=== PATIENT | male | born 1950 | race Two or more races ===

== ENCOUNTER 2020-08-31 09:14 | Day surgery (SDC) | payer MEDICARE, SELFPAY ==
[2020-08-24 14:05] VITALS: BMI 47.9
[2020-08-31 10:06] VITALS: BP 228/151; PULSE 97; RESP 16; TEMP 36.6; O2SAT 96
--- NOTE | 2020-08-31 10:34 | PC.NURSE ---
Dr. Chavis and Dr. cuellar at patient bedside. patient refused to go to the ED states he has been dealing with elevated bp, he will go home and take his medications and follow up with PCP.
== END 2020-08-31 23:59 ==
LOC: HO.SSS 09:14
PROVIDERS: PCP Nurse Practitioner Family; Visit Provider Internal Medicine Gastroenterology
DX: Z12.11 Encounter for screening for malignant neoplasm of colon (principal); Z53.9 Procedure and treatment not carried out, unspecified reason

== ENCOUNTER → 2020-09-15 08:44 | Outpatient (BNVA) | payer MEDICARE, SELFPAY | PROVIDERS: PCP Nurse Practitioner Family; Visit Provider Physician Assistant | DX: Z12.11 Encounter for screening for malignant neoplasm of colon (principal) | CPT/HCPCS: Q3014 ==

== ENCOUNTER 2021-03-02 10:02 | Outpatient (REF) | payer MEDICARE, SELFPAY ==
[2021-03-02 13:06] LABS: Vitamin B12 340 pg/mL (200-900)
[2021-03-02 13:11] LABS: Prostate Specific Antigen Scr 0.17 ng/mL (<0.05-4.0); TSH reflex Free T4 0.68 uIU/mL (0.32-4.0)
[2021-03-02 13:15] LABS: Alanine Aminotransferase 10 U/L (0-40); Albumin Level 3.9 g/dL (3.5-5.0); Alkaline Phosphatase 70 U/L (39-117); Anion Gap 13 (12-20); Aspartate Amino Transferase 11 U/L (5-37); Bilirubin Total 0.4 mg/dL (0.0-1.0); Blood Urea Nitrogen 25 mg/dL (9-16); Calcium 9.2 mg/dL (8.4-10.2); Carbon Dioxide 27 mmol/L (22-29); Chloride 107 mmol/L (96-108); Cholesterol 160 mg/dL; Estimated Glomerular Filt Rate 38; Glucose Fasting 85 mg/dL (60-99); HDL Cholesterol 40 mg/dL; LDL Cholesterol Calculated 107 mg/dl; Magnesium 2.1 mg/dL (1.6-2.6); Potassium 4.6 mmol/L (3.3-5.1); Sodium 142 mmol/L (135-145); Total Protein 6.6 g/dL (6.5-8.0); Triglycerides 67 mg/dL
[2021-03-06 12:46] LABS: Vitamin B6 3.9 ng/mL (2.1-21.7)
== END 2021-03-02 10:03 | disposition home or self-care (01) ==
LOC: HO.HMGCLDS 10:02
PROVIDERS: PCP Nurse Practitioner Family; Visit Provider Nurse Practitioner Family
DX: I10 Essential (primary) hypertension (principal); R25.2 Cramp and spasm; R79.89 Other specified abnormal findings of blood chemistry
CPT/HCPCS: 36415; 80053; 80061; 82607; 83735; 84153; 84207; 84443

== ENCOUNTER → 2021-03-29 14:54 | Outpatient (BNVA) | payer MEDICARE, SELFPAY | PROVIDERS: PCP Nurse Practitioner Family; Referring Provider Nurse Practitioner Family; Visit Provider Nurse Practitioner Family | DX: Z12.11 Encounter for screening for malignant neoplasm of colon (principal); K59.00 Constipation, unspecified; I10 Essential (primary) hypertension | CPT/HCPCS: 99212 ==

== ENCOUNTER → 2021-04-22 08:17 | Outpatient (REF) | payer MEDICARE, SELFPAY ==
--- NOTE | 2021-04-22 08:20 | CA_ITS ---
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 The calculated ejection fraction is 58% by biplane method. - There is mild calcification of the aortic valve. - There is mild dilatation of the ascending aorta measuring 4.30 cm. Findings Procedure Information Contrast agent, definity, is being given per protocol without apparent complications. Left Ventricle Normal left ventricular cavity size. There is moderately increased left ventricular wall thickness. The left ventricular systolic function is normal. The calculated ejection fraction is 58% by biplane method. There is no evidence of regional wall motion abnormalities. E/E prime ratio is between 8 and 15 consistent with indeterminate filling pressures. Evidence suggests grade I (mild) diastolic dysfunction. Right Ventricle Normal right ventricular cavity size and systolic function. Atria The left atrium is mildly dilated. The right atrium is normal in size. Aortic Valve There is a normal trileaflet aortic valve. There is mild calcification of the aortic valve. There is no aortic valve stenosis. There is no aortic valve regurgitation. Mitral Valve The mitral valve appears normal. There is trace mitral valve regurgitation. There is no mitral valve stenosis. Pulmonic Valve The pulmonic valve was not well visualized. Tricuspid Valve Normal tricuspid valve structure. There is trace tricuspid valve regurgitation. The pulmonary artery systolic pressure is normal. Great Vessels There is mild dilatation of the ascending aorta measuring 4.30 cm. Venous The inferior vena cava is normal in size and collapses greater than 50% with inspiration. Pericardium/Pleural There is no evidence of pericardial effusion. Prior Study Comparison No prior study available for comparison. Measurements 2D Linear Measurements IVSd: 1.32 0.6-0.9/0.6-1.0 cm LVIDd: 4.93 3.9-5.3/4.2-5.9 cm LVIDd Index: 2.33 2.4-3.2/2.2-3.1 cm/m2 LVIDs: 3.39 2.0-3.6 cm LVPWd: 1.30 0.7-1.1 cm Ao Root: 4.00 2.1-3.5 cm LA Diam: 3.20 2.7-3.8/3.0-4.0 cm LAIDs Index: 1.51 1.5-2.3 cm/m2 LV Mass: 322.97 67-162/88-224 g LV Mass Index: 152.34 43-95/49-115 g/m2 LVOT Diam: 2.20 3.0+(-)1.3 cm 2D Systolic Function EF 4C: 58.00 >55% EF 2C: 59.00 >55% EF BiP: 57.80 >55% Mitral Valve MV Pk E: 0.86 MV PK A: 1.11 MV Decel Time: 271.00 E/A: 0.80 E'Lateral: 5.87 E'Medial: 6.20 E/E' Med: 13.90 E/E' Lat: 14.70 PHT: 79.00 MVA PHT: 2.78 Decel Elmore: 3.19 Aortic Valve AoV Pk Jasper: 1.81 AoV Mn Jasper: 1.26 AoV VTI: 0.34 AoV Pk Grad: 13.00 Aov Mn Grad: 7.00 KIMMY Cont.VTI: 2.45 LVOT LVOT Pk Jasper: 1.01 LVOT Mn Jasper: 0.65 LVOT VTI: 0.22 LVOT Pk Grad: 4.00 LVOT Mn Grad: 2.00 LVOT Diam: 2.20 LVOT Area: 3.80 Diastolic Function MV Pk E: 0.86 MV Pk A: 1.11 E/A: 0.80 E'Medial: 6.20 E/E' Med: 13.90 E' Laterial: 5.87 E/E' Lat: 14.70 Tricuspid Valve RA Press: 3.00 Great Vessels Aorta Ao Root-2D: 4.00 2.0-3.7 cm Ao Asc: 4.30 2.1-3.4 cm Updated in Other Vendor System with Status of Final Thad Hoover MD electronically signed on 04/23/2021 1:27:26 PM with status of Final
== END ==
LOC: HO.CARD 08:17
PROVIDERS: Visit Provider Nurse Practitioner Family
DX: Z01.818 Encounter for other preprocedural examination (principal); I10 Essential (primary) hypertension; E66.01 Morbid (severe) obesity due to excess calories; R60.9 Edema, unspecified
CPT/HCPCS: 93306; Q9957

== ENCOUNTER → 2021-05-09 14:49 | Outpatient (BNVA) | payer MEDICARE, SELFPAY | PROVIDERS: PCP Nurse Practitioner Family; Referring Provider Nurse Practitioner Family; Visit Provider Internal Medicine Cardiovascular Disease | DX: I11.9 Hypertensive heart disease without heart failure (principal) | CPT/HCPCS: 99202 ==

== ENCOUNTER 2021-06-07 09:54 | Outpatient (REF) | payer MEDICARE, SELFPAY | END 2021-06-07 09:55 | disposition home or self-care (01) | LOC: HO.HMGCX 09:54 | PROVIDERS: PCP Nurse Practitioner Family; Visit Provider Internal Medicine Cardiovascular Disease | DX: Z13.89 Encounter for screening for other disorder (principal) ==

== ENCOUNTER 2021-06-08 09:53 | Outpatient (REF) | payer MEDICARE, OTHER, SELFPAY ==
--- NOTE | ~2021-06-08 | US_ITS ---
EXAMINATION: US RETROPERITONEAL LIMITED (RENAL WITH DOPPLER) CLINICAL INFORMATION: Essential hypertension. COMPARISON: None TECHNIQUE: Ultrasound of the kidneys was performed along with color flow Doppler imaging and velocity measurements in the proximal mid and distal renal arteries. In addition, resistive indices were calculated. Aortic velocities were measured and renal/aortic ratios were calculated. FINDINGS: Both kidneys demonstrate increased echogenicity. The right kidney is significantly smaller than the left. RIGHT KIDNEY: 8.0 x 5.0 x 3.9 cm (SAG x AP x TRV). The kidney is normal contour Renal cortical thickness is normal. No calculi or focal parenchymal lesions. No hydronephrosis. LEFT KIDNEY: 12.2 x 5.4 x 5.6 cm (SAG x AP x TRV). The kidney is normal in size and contour, . Renal cortical thickness is normal. Two cysts are noted one in the upper pole measuring 1.5 cm and another in the lower pole measuring 2.5 cm. No solid masses are seen. No calculi . No hydronephrosis. Velocity measurements in the proximal mid and distal renal arteries are normal. Highest velocity on the right is approximately 75 cm/s and the highest velocity on the left is also approximally at 95 cm/s. Aortic velocities were normal at 73 cm/s and, therefore, the renal aortic ratios are normal. Resistive indices were measured and were all within normal limits. Both renal veins appear to be patent. US/US renal BI IMPRESSION: The right kidney is significantly smaller than the left and both kidneys demonstrate increased echogenicity suggesting medical renal disease. However, there is no convincing evidence of renal vascular hypertension. Incidentally noted are two simple cysts left kidney.
--- NOTE | ~2021-06-08 | US_ITS ---
EXAMINATION: US RETROPERITONEAL LIMITED (RENAL WITH DOPPLER) CLINICAL INFORMATION: Essential hypertension. COMPARISON: None TECHNIQUE: Ultrasound of the kidneys was performed along with color flow Doppler imaging and velocity measurements in the proximal mid and distal renal arteries. In addition, resistive indices were calculated. Aortic velocities were measured and renal/aortic ratios were calculated. FINDINGS: Both kidneys demonstrate increased echogenicity. The right kidney is significantly smaller than the left. RIGHT KIDNEY: 8.0 x 5.0 x 3.9 cm (SAG x AP x TRV). The kidney is normal contour Renal cortical thickness is normal. No calculi or focal parenchymal lesions. No hydronephrosis. LEFT KIDNEY: 12.2 x 5.4 x 5.6 cm (SAG x AP x TRV). The kidney is normal in size and contour, . Renal cortical thickness is normal. Two cysts are noted one in the upper pole measuring 1.5 cm and another in the lower pole measuring 2.5 cm. No solid masses are seen. No calculi . No hydronephrosis. Velocity measurements in the proximal mid and distal renal arteries are normal. Highest velocity on the right is approximately 75 cm/s and the highest velocity on the left is also approximally at 95 cm/s. Aortic velocities were normal at 73 cm/s and, therefore, the renal aortic ratios are normal. Resistive indices were measured and were all within normal limits. Both renal veins appear to be patent. US/US renal doppler IMPRESSION: The right kidney is significantly smaller than the left and both kidneys demonstrate increased echogenicity suggesting medical renal disease. However, there is no convincing evidence of renal vascular hypertension. Incidentally noted are two simple cysts left kidney.
== END 2021-06-08 09:54 | disposition home or self-care (01) ==
LOC: HO.HMGCX 09:53
PROVIDERS: PCP Nurse Practitioner Family; Visit Provider Internal Medicine Cardiovascular Disease
DX: G47.33 Obstructive sleep apnea (adult) (pediatric) (principal); I10 Essential (primary) hypertension
CPT/HCPCS: 76775; 93975

== ENCOUNTER → 2021-10-31 19:43 | Outpatient (REF) | payer OTHER, SELFPAY | LOC: HO.SL 19:43 | PROVIDERS: Visit Provider Internal Medicine Cardiovascular Disease | DX: G47.33 Obstructive sleep apnea (adult) (pediatric) (principal); G47.61 Periodic limb movement disorder; R06.83 Snoring; R40.0 Somnolence | CPT/HCPCS: 95811 ==

== ENCOUNTER → 2021-11-14 14:06 | Outpatient (BNVA) | payer OTHER, SELFPAY | PROVIDERS: Visit Provider Nurse Practitioner Family | DX: G47.33 Obstructive sleep apnea (adult) (pediatric) (principal); I10 Essential (primary) hypertension; R25.1 Tremor, unspecified; H57.12 Ocular pain, left eye | CPT/HCPCS: 99202 ==

== ENCOUNTER 2022-07-27 14:00 | Outpatient (REF) | payer OTHER, SELFPAY ==
[2022-07-27 17:42] LABS: Anion Gap 21 (12-20); Blood Urea Nitrogen 66 mg/dL (9-16); Calcium 9.1 mg/dL (8.4-10.2); Carbon Dioxide 18 mmol/L (22-29); Chloride 107 mmol/L (96-108); Estimated Glomerular Filt Rate 26; Glucose Random 132 mg/dL (60-115); Potassium 4.8 mmol/L (3.3-5.1); Sodium 141 mmol/L (135-145); Uric Acid 10.3 mg/dL (3.4-7.0)
== END 2022-07-27 14:01 | disposition home or self-care (01) ==
LOC: HO.HMGCLDS 14:00
PROVIDERS: PCP Nurse Practitioner Family; Visit Provider Hospitalist
DX: N17.9 Acute kidney failure, unspecified (principal)
CPT/HCPCS: 36415; 80048; 84550

== ENCOUNTER → 2022-09-14 14:03 | Outpatient (BNVA) | payer OTHER, SELFPAY | PROVIDERS: PCP Nurse Practitioner Family; Referring Provider Nurse Practitioner Family; Visit Provider Nurse Practitioner Family | DX: I13.0 Hypertensive heart and chronic kidney disease with heart failure and stage 1 through stage 4 chronic kidney disease, or unspecified chronic kidney disease (principal); I50.9 Heart failure, unspecified; N18.9 Chronic kidney disease, unspecified | CPT/HCPCS: 99212 ==

== ENCOUNTER 2023-05-14 09:54 | Outpatient (AMB) | payer OTHER, SELFPAY ==
[2023-05-14 10:33] VITALS: BP 158/88; PULSE 66; O2SAT 97; BMI 48.2
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
== END 2023-05-14 12:56 | disposition home or self-care (01) ==
PROVIDERS: Visit Provider Nurse Practitioner Family
DX: I11.0 Hypertensive heart disease with heart failure (principal); I50.9 Heart failure, unspecified; Z86.69 Personal history of other diseases of the nervous system and sense organs
CPT/HCPCS: 99213

== ENCOUNTER 2023-05-29 09:33 | Outpatient (AMB) | payer OTHER, SELFPAY ==
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
[2023-05-29 09:43] VITALS: BP 140/80; PULSE 88; TEMP 36.3; O2SAT 95; BMI 48.7
== END 2023-05-29 10:53 | disposition home or self-care (01) ==
PROVIDERS: PCP Nurse Practitioner Family; Visit Provider Internal Medicine
DX: S50.02XA Contusion of left elbow, initial encounter (principal)
CPT/HCPCS: 99213

== ENCOUNTER 2023-06-05 13:14 | Outpatient (AMB) | payer OTHER, SELFPAY ==
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
[2023-06-05 13:25] VITALS: BP 152/88; PULSE 63; O2SAT 93; BMI 48.7
== END 2023-06-05 14:21 | disposition home or self-care (01) ==
PROVIDERS: PCP Nurse Practitioner Family; Visit Provider Nurse Practitioner Family
DX: M79.89 Other specified soft tissue disorders (principal); M25.529 Pain in unspecified elbow; W19.XXXA Unspecified fall, initial encounter; M54.50 Low back pain, unspecified
CPT/HCPCS: 99213

== ENCOUNTER 2023-10-02 12:47 | Outpatient (AMB) | payer OTHER, MEDICAID, SELFPAY ==
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
[2023-10-02 12:56] VITALS: BP 132/98; PULSE 80; O2SAT 92; BMI 48.8
[2023-10-02 13:26] VITALS: BP 130/92
[2023-10-02 13:38] VITALS: BP 130/92
== END 2023-10-02 15:14 | disposition home or self-care (01) ==
PROVIDERS: PCP Nurse Practitioner Family; Visit Provider Nurse Practitioner Family
DX: I10 Essential (primary) hypertension (principal); R60.9 Edema, unspecified
CPT/HCPCS: 99213

== ENCOUNTER 2023-10-11 10:43 | Outpatient (REF) | payer OTHER, SELFPAY ==
[2023-10-11 13:35] LABS: MANUAL DIFF FLAG NO
[2023-10-11 13:41] LABS: Appearance Urine Clear; Color Urine Yellow; Glucose Urine UA Negative (Negative); Leukocyte Esterase Urine Negative (Negative); Nitrite Urine Negative (Negative); PH 5.5 (5.0-9.0); Specific Gravity - Urine 1.015 (1.005-1.025); UMIC TRIGGER UACC YES; Urine Blood Negative (Negative); Urine Ketones Negative (Negative); Urine Protein 100 (2+) mg/dL (Neg-Trace)
[2023-10-11 13:44] LABS: Basophils Absolute Auto 0.1 X10*3/uL (0.0-0.2); Basophils Percent Auto 1.5 % (0-2); Eosinophils Absolute Auto 0.1 X10*3/uL (0.0-0.4); Eosinophils Percent Auto 2.8 % (0-4); Hematocrit 39.7 % (42.0-52.0); Hemoglobin 12.3 g/dl (14.0-18.0); Imm Gran Abs Auto 0.01 X10*3/uL (0.00-0.03); Imm Gran Pct Auto 0.2 % (0.0-0.4); Lymphocytes Absolute Auto 1.1 X10*3/uL (1.2-4.9); Lymphocytes Percent Auto 24.7 % (20-40); Mean Corpuscular Hemoglobin 28.5 pg (27.0-33.0); Mean Corpuscular Volume 91.9 fL (80.0-98.0); Mean Platelet Volume 10.9 fL (9.4-12.4); Monocytes Absolute Auto 0.6 X10*3/uL (0.1-1.2); Monocytes Percent Auto 13.1 % (2-11); Neutrophils Absolute Auto 2.6 x10*3/uL (2.0-8.3); Neutrophils Percent Auto 57.7 % (45-73); Platelet Count 228 X10*3/uL (160-400); Red Blood Count 4.32 X10*6/uL (4.60-5.80); Red Cell Distribution Width 14.6 % (11.0-16.0); White Blood Count 4.6 X10*3/uL (4.8-10.8)
[2023-10-11 13:46] LABS: Bacteria Urine None Seen (None Seen); Hyaline Casts Urine 0-2 /LPF (0-2); RBC Urine 0-2 /HPF (0-2); Squamous Epithelial Cell Urine 0-2 /HPF (0-2); WBC Urine 0-5 /HPF (0-5)
[2023-10-11 14:15] LABS: Alanine Aminotransferase 10 U/L (0-40); Albumin Level 4.1 g/dL (3.5-5.0); Alkaline Phosphatase 64 U/L (39-117); Anion Gap 11 (12-20); Aspartate Amino Transferase 14 U/L (5-37); Bilirubin Total 0.3 mg/dL (0.0-1.0); Blood Urea Nitrogen 45 mg/dL (9-16); Calcium 9.6 mg/dL (8.4-10.2); Carbon Dioxide 29 mmol/L (22-29); Chloride 109 mmol/L (96-108); Cholesterol 155 mg/dL (<200); Estimated Glomerular Filt Rate 28; Glucose Fasting 94 mg/dL (60-99); HDL Cholesterol 40 mg/dL (>40); LDL Cholesterol Calculated 100 mg/dL (<100); Potassium 4.3 mmol/L (3.3-5.1); Sodium 145 mmol/L (135-145); Total Protein 7.4 g/dL (6.5-8.0); Triglycerides 77 mg/dL (<150)
[2023-10-11 14:16] LABS: B Type Natriuretic Peptide 30 pg/mL (<100)
[2023-10-11 14:17] LABS: Prostate Specific Antigen Scr 0.42 ng/mL (<0.05-4.0)
[2023-10-11 14:20] LABS: TSH reflex Free T4 0.84 uIU/mL (0.32-4.0)
== END 2023-10-11 10:44 | disposition home or self-care (01) ==
LOC: HO.HMGCLDS 10:43
PROVIDERS: PCP Nurse Practitioner Family; Visit Provider Nurse Practitioner Family
DX: Z00.00 Encounter for general adult medical examination without abnormal findings (principal); I50.9 Heart failure, unspecified; Z12.5 Encounter for screening for malignant neoplasm of prostate
CPT/HCPCS: 36415; 80053; 80061; 81001; 83880; 84153; 84443; 85025

== ENCOUNTER 2024-01-07 11:07 | Outpatient (AMB) | payer MEDICARE, SELFPAY ==
[2024-01-07 11:09] VITALS: BP 180/92; PULSE 86; O2SAT 93; BMI 49.1
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
[2024-01-07 11:49] VITALS: BP 150/92
== END 2024-01-07 14:43 | disposition home or self-care (01) ==
PROVIDERS: Visit Provider Nurse Practitioner Family
DX: Z00.00 Encounter for general adult medical examination without abnormal findings (principal); I10 Essential (primary) hypertension
CPT/HCPCS: 99397

== ENCOUNTER 2024-02-02 10:45 | Outpatient (AMB) | payer MEDICARE, SELFPAY ==
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
[2024-02-02 13:29] VITALS: BP 134/80; PULSE 69; O2SAT 97; BMI 49.5
== END 2024-02-02 14:18 | disposition home or self-care (01) ==
PROVIDERS: PCP Nurse Practitioner Family; Visit Provider Family Medicine
DX: M10.9 Gout, unspecified (principal)
CPT/HCPCS: 99051; 99213

== ENCOUNTER 2024-02-28 11:16 | Outpatient (AMB) | payer MEDICARE, SELFPAY ==
[2024-02-28 11:42] VITALS: BP 136/82; PULSE 72; TEMP 36.6; O2SAT 96
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
== END 2024-02-28 13:27 | disposition home or self-care (01) ==
PROVIDERS: PCP Nurse Practitioner Family; Visit Provider Emergency Medicine
DX: M10.9 Gout, unspecified (principal)
CPT/HCPCS: 99213

== ENCOUNTER 2024-03-19 13:27 | Outpatient (AMB) | payer MEDICARE, SELFPAY ==
[2024-03-19 13:26] VITALS: BP 150/70; PULSE 84; TEMP 36.4; O2SAT 95; BMI 49.4
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
== END 2024-03-19 14:19 | disposition home or self-care (01) ==
PROVIDERS: PCP Nurse Practitioner Family; Visit Provider Physician Assistant
DX: M10.9 Gout, unspecified (principal)
CPT/HCPCS: 99213

== ENCOUNTER 2024-05-20 13:30 | Outpatient (AMB) | payer MEDICARE, SELFPAY ==
[2024-05-20 13:38] VITALS: BP 180/90; PULSE 73; BMI 48.2
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
== END 2024-05-20 14:19 | disposition home or self-care (01) ==
PROVIDERS: PCP Nurse Practitioner Family; Visit Provider Nurse Practitioner Family
DX: I13.0 Hypertensive heart and chronic kidney disease with heart failure and stage 1 through stage 4 chronic kidney disease, or unspecified chronic kidney disease (principal); I50.30 Unspecified diastolic (congestive) heart failure; N18.9 Chronic kidney disease, unspecified
CPT/HCPCS: 99214

== ENCOUNTER → 2024-05-20 13:30 | Outpatient (BNVA) | payer MEDICARE, SELFPAY | PROVIDERS: PCP Nurse Practitioner Family; Visit Provider Nurse Practitioner Family | DX: I13.0 Hypertensive heart and chronic kidney disease with heart failure and stage 1 through stage 4 chronic kidney disease, or unspecified chronic kidney disease (principal); I50.9 Heart failure, unspecified; N18.9 Chronic kidney disease, unspecified | CPT/HCPCS: 99212 ==

== ENCOUNTER 2024-06-05 11:12 | Outpatient (AMB) | payer MEDICARE, SELFPAY ==
[2024-06-05 11:20] VITALS: BP 160/100; PULSE 67; O2SAT 92; BMI 48.2
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
== END 2024-06-05 12:15 | disposition home or self-care (01) ==
PROVIDERS: PCP Nurse Practitioner Family; Visit Provider Physician Assistant
DX: I50.9 Heart failure, unspecified (principal)
CPT/HCPCS: 99213

== ENCOUNTER 2024-06-17 08:34 | Outpatient (AMB) | payer MEDICARE, SELFPAY ==
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
[2024-06-17 08:36] VITALS: BP 134/92; PULSE 93; TEMP 37.1; O2SAT 96; BMI 47.9
== END 2024-06-17 09:21 | disposition home or self-care (01) ==
PROVIDERS: PCP Nurse Practitioner Family; Visit Provider Nurse Practitioner Family
DX: M10.9 Gout, unspecified (principal)
CPT/HCPCS: 99214

== ENCOUNTER → 2024-06-24 14:51 | Outpatient (REF) | payer MEDICARE, SELFPAY ==
--- NOTE | 2024-06-24 14:53 | CA_ITS ---
Transthoracic Echocardiogram Patient (Last, First, Middle): Rashid Moss, Gender: Male Date of : 1950 Age: 73 Procedure Date: 06/24/2024 Procedure Type: Transthoracic Echocardiogram Location: OP Height: 172. cm Weight: 141.98 kg BSA: 2.47 m2 Heart Rate: 73 bpm BP: 172 / 120 mmHg Blintze Roller: ROSI Referring MD: Angelique Rogers HOUSEKEEPING/LAUNDRY SUPERVISORChristinaC Symptoms: I11.9 - Hypertensive heart disease without heart failure Study Quality: Fair ECG Rhythm: Sinus Conclusions: - The left ventricular systolic function is normal. The calculated ejection fraction is 55% by biplane method. - There is severely increased left ventricular wall thickness. - Evidence suggests grade II (moderate) diastolic dysfunction. - There is mild calcification of the aortic valve. - There is mild dilatation of the ascending aorta measuring 4.40 cm. Findings Left Ventricle Normal left ventricular cavity size. There is severely increased left ventricular wall thickness. The left ventricular systolic function is normal. The calculated ejection fraction is 55% by biplane method. There is no evidence of regional wall motion abnormalities. Evidence suggests grade II (moderate) diastolic dysfunction. Right Ventricle Normal right ventricular cavity size and systolic function. Atria Both atria are normal in size. Aortic Valve There is a normal trileaflet aortic valve. There is mild calcification of the aortic valve. There is no aortic valve stenosis. There is trace (trivial) aortic valve regurgitation. Mitral Valve The mitral valve appears normal. There is no mitral valve regurgitation. There is no mitral valve stenosis. Pulmonic Valve The pulmonic valve is likely normal. Tricuspid Valve Normal tricuspid valve structure. There is trace tricuspid valve regurgitation. There is no evidence of pulmonary hypertension. Great Vessels There is mild dilatation of the ascending aorta measuring 4.40 cm. Venous The inferior vena cava is normal in size and collapses greater than 50% with inspiration. Pericardium/Pleural There is no evidence of pericardial effusion. Prior Study Comparison No significant change compared to prior study dated: 04/22/2021. Measurements 2D Linear Measurements IVSd: 1.62 0.6-0.9/0.6-1.0 cm LVIDd: 4.41 3.9-5.3/4.2-5.9 cm LVIDd Index: 1.79 2.4-3.2/2.2-3.1 cm/m2 LVIDs: 2.93 2.0-3.6 cm LVPWd: 1.71 0.7-1.1 cm LA Diam: 4.20 2.7-3.8/3.0-4.0 cm LAIDs Index: 1.70 1.5-2.3 cm/m2 LV Mass: 393.04 67-162/88-224 g LV Mass Index: 159.12 43-95/49-115 g/m2 LVOT Diam: 2.20 3.0+(-)1.3 cm 2D Systolic Function EF 4C: 55.80 >55% EF 2C: 52.90 >55% EF BiP: 55.30 >55% Mitral Valve MV Pk E: 0.85 MV PK A: 0.78 MV Decel Time: 228.00 E/A: 1.10 E'Lateral: 4.13 E'Medial: 3.81 E/E' Med: 22.30 E/E' Lat: 20.50 PHT: 67.00 MVA PHT: 3.28 Decel Guadalupe: 3.72 Aortic Valve AoV Pk Jasper: 1.62 AoV Mn Jasper: 1.17 AoV VTI: 0.27 AoV Pk Grad: 10.00 Aov Mn Grad: 6.00 KIMMY Cont.VTI: 2.52 LVOT LVOT Pk Jasper: 1.01 LVOT Mn Jasper: 0.63 LVOT VTI: 0.18 LVOT Pk Grad: 4.00 LVOT Mn Grad: 2.00 LVOT Diam: 2.20 LVOT Area: 3.80 Diastolic Function MV Pk E: 0.85 MV Pk A: 0.78 E/A: 1.10 E'Medial: 3.81 E/E' Med: 22.30 E' Laterial: 4.13 E/E' Lat: 20.50 Right Ventricle TAPSE (mm): 23.90 TVS' Jasper: 19.90 Tricuspid Valve RA Press: 3.00 Great Vessels Aorta Sinus of Valsalva: 3.50 2.0-3.5 cm Ao Asc: 4.40 2.1-3.4 cm Pulmonary Valve PV Pk Jasper: 1.34 Peak PV Grad: 7.00 Updated in Other Vendor System with Status of Final Thad Hoover MD electronically signed on 06/25/2024 9:53:51 AM with status of Final
== END ==
LOC: HO.CARD 14:51
PROVIDERS: PCP Nurse Practitioner Family; Visit Provider Nurse Practitioner Family
DX: I11.9 Hypertensive heart disease without heart failure (principal)
CPT/HCPCS: 93306

== ENCOUNTER 2024-07-01 09:20 | Outpatient (AMB) | payer MEDICARE, SELFPAY ==
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
[2024-07-01 09:49] VITALS: BP 190/102; PULSE 81; TEMP 36.8; O2SAT 93; BMI 49.0
== END 2024-07-01 10:38 | disposition home or self-care (01) ==
PROVIDERS: PCP Nurse Practitioner Family; Visit Provider Physician Assistant
DX: K62.5 Hemorrhage of anus and rectum (principal)

== ENCOUNTER → 2024-07-01 09:20 | Outpatient (BNVA) | payer MEDICARE, SELFPAY | PROVIDERS: PCP Nurse Practitioner Family ==

== ENCOUNTER 2024-07-01 10:28 | Outpatient (REF) | payer MEDICARE, SELFPAY ==
[2024-07-01 13:38] LABS: MANUAL DIFF FLAG NO
[2024-07-01 13:45] LABS: Basophils Absolute Auto 0.1 X10*3/uL (0.0-0.2); Basophils Percent Auto 0.8 % (0-2); Eosinophils Absolute Auto 0.1 X10*3/uL (0.0-0.4); Hematocrit 38.2 % (42.0-52.0); Hemoglobin 11.8 g/dl (14.0-18.0); Imm Gran Abs Auto 0.05 X10*3/uL (0.00-0.03); Imm Gran Pct Auto 0.8 % (0.0-0.4); Lymphocytes Absolute Auto 1.1 X10*3/uL (1.2-4.9); Lymphocytes Percent Auto 16.6 % (20-40); Mean Corpuscular HGB Conc 30.9 g/dl (31.0-36.0); Mean Corpuscular Volume 93.9 fL (80.0-98.0); Mean Platelet Volume 11.4 fL (9.4-12.4); Monocytes Absolute Auto 0.9 X10*3/uL (0.1-1.2); Monocytes Percent Auto 13.9 % (2-11); Neutrophils Absolute Auto 4.4 x10*3/uL (2.0-8.3); Neutrophils Percent Auto 65.9 % (45-73); Platelet Count 228 X10*3/uL (160-400); Red Blood Count 4.07 X10*6/uL (4.60-5.80); White Blood Count 6.6 X10*3/uL (4.8-10.8)
[2024-07-01 14:18] LABS: Anion Gap 13 (12-20); Blood Urea Nitrogen 32 mg/dL (9-16); Calcium 9.6 mg/dL (8.4-10.2); Carbon Dioxide 28 mmol/L (22-29); Chloride 108 mmol/L (96-108); Estimated Glomerular Filt Rate 26; Glucose Random 109 mg/dL (60-115); Potassium 3.8 mmol/L (3.3-5.1); Sodium 145 mmol/L (135-145)
== END 2024-07-01 10:29 | disposition home or self-care (01) ==
LOC: HO.HMGCLDS 10:28
PROVIDERS: PCP Nurse Practitioner Family; Visit Provider Physician Assistant
DX: K62.5 Hemorrhage of anus and rectum (principal); E78.5 Hyperlipidemia, unspecified; I13.0 Hypertensive heart and chronic kidney disease with heart failure and stage 1 through stage 4 chronic kidney disease, or unspecified chronic kidney disease; I50.9 Heart failure, unspecified; N18.9 Chronic kidney disease, unspecified
CPT/HCPCS: 36415; 80048; 85025; 99212

== ENCOUNTER 2024-07-21 11:01 | Outpatient (AMB) | payer MEDICARE, SELFPAY ==
[2024-07-21 11:20] VITALS: BP 174/100; PULSE 87; TEMP 36.7; O2SAT 95; BMI 49.0
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
== END 2024-07-21 12:51 | disposition home or self-care (01) ==
PROVIDERS: PCP Nurse Practitioner Family; Visit Provider Physician Assistant
DX: M79.89 Other specified soft tissue disorders (principal); E66.01 Morbid (severe) obesity due to excess calories; Z68.42 Body mass index [BMI] 45.0-49.9, adult; I10 Essential (primary) hypertension

== ENCOUNTER → 2024-07-21 11:01 | Outpatient (BNVA) | payer MEDICARE, SELFPAY | PROVIDERS: PCP Nurse Practitioner Family; Visit Provider Physician Assistant | DX: R60.0 Localized edema (principal); E66.01 Morbid (severe) obesity due to excess calories; I10 Essential (primary) hypertension | CPT/HCPCS: 99212 ==

== ENCOUNTER → 2024-07-25 12:02 | Outpatient (BNVA) | payer MEDICARE, SELFPAY | PROVIDERS: PCP Nurse Practitioner Family ==

== ENCOUNTER 2024-08-12 11:56 | Outpatient (AMB) | payer MEDICARE, SELFPAY ==
[2024-08-12 11:57] VITALS: BP 136/84; PULSE 88; TEMP 36.7; O2SAT 98; BMI 49.0
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
== END 2024-08-12 12:51 | disposition home or self-care (01) ==
PROVIDERS: PCP Nurse Practitioner Family; Visit Provider Nurse Practitioner Family
DX: M25.562 Pain in left knee (principal); E66.01 Morbid (severe) obesity due to excess calories; Z68.42 Body mass index [BMI] 45.0-49.9, adult; G89.29 Other chronic pain

== ENCOUNTER → 2024-08-12 11:56 | Outpatient (BNVA) | payer MEDICARE, SELFPAY | PROVIDERS: PCP Nurse Practitioner Family; Visit Provider Nurse Practitioner Family | DX: M25.562 Pain in left knee (principal); G89.29 Other chronic pain; E66.01 Morbid (severe) obesity due to excess calories | CPT/HCPCS: 99212 ==

== ENCOUNTER 2024-08-26 14:53 | Outpatient (AMB) | payer MEDICARE, SELFPAY ==
[2024-08-26 15:37] VITALS: BP 170/120; PULSE 75; O2SAT 93; BMI 47.9
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
== END 2024-08-26 16:42 | disposition home or self-care (01) ==
PROVIDERS: PCP Nurse Practitioner Family; Visit Provider Nurse Practitioner Family
DX: M79.642 Pain in left hand (principal)

== ENCOUNTER → 2024-08-26 14:53 | Outpatient (BNVA) | payer MEDICARE, SELFPAY | PROVIDERS: PCP Nurse Practitioner Family; Visit Provider Nurse Practitioner Family | DX: M79.642 Pain in left hand (principal) | CPT/HCPCS: 99212 ==

== ENCOUNTER 2024-09-17 07:57 | Outpatient (REF) | payer MEDICARE, SELFPAY ==
--- NOTE | ~2024-09-17 | XR_ITS ---
EXAMINATION: XR ANKLE RIGHT CLINICAL INFORMATION: Pain in unspecified ankle and joints of unspecified foot M25.579. COMPARISON: None available TECHNIQUE: AP, lateral, and mortise views of the right ankle. FINDINGS: No fracture. There is soft tissue swelling around both medial and lateral malleoli. Alignment is anatomic. No erosions. Joint spaces are maintained. Soft tissues are normal. There are vascular calcifications. There is inferior calcaneal spur. XR/XR ankle RT min 3V IMPRESSION: 1. No fracture. 2. Soft tissue swelling around medial and lateral malleoli. 3. Inferior calcaneal spur. Electronically signed by: Natalie Boyer MD 10/15/2024 09:17 PM [facility]
--- NOTE | ~2024-09-17 | XR_ITS ---
EXAMINATION: XR ANKLE LEFT CLINICAL INFORMATION: Pain in unspecified ankle and joints of unspecified foot M25.579. COMPARISON: None available TECHNIQUE: AP, lateral, and oblique views of the left ankle. FINDINGS: Soft tissue swelling around medial malleolus. Distal tibia and fibula are intact. Ankle mortise and talar dome is normal. Loss of midfoot arch suggesting pes planus, there are small posterior and inferior calcaneal spurs. XR/XR ankle LT min 3V IMPRESSION: 1. No fracture. 2. Soft tissue swelling around medial malleolus. 3. Pes planus. 4. Small posterior and inferior calcaneal spurs. Electronically signed by: Natalie Boyer MD 10/12/2024 12:01 PM [facility]
[2024-09-17 10:19] LABS: MANUAL DIFF FLAG NO
[2024-09-17 10:29] LABS: Basophils Percent Auto 0.3 % (0-2); Eosinophils Percent Auto 0.1 % (0-4); Hematocrit 38.8 % (42.0-52.0); Hemoglobin 12.1 g/dl (14.0-18.0); Imm Gran Abs Auto 0.05 X10*3/uL (0.00-0.03); Imm Gran Pct Auto 0.7 % (0.0-0.4); Lymphocytes Absolute Auto 0.6 X10*3/uL (1.2-4.9); Mean Corpuscular HGB Conc 31.2 g/dl (31.0-36.0); Mean Corpuscular Hemoglobin 28.9 pg (27.0-33.0); Mean Corpuscular Volume 92.8 fL (80.0-98.0); Monocytes Absolute Auto 0.3 X10*3/uL (0.1-1.2); Monocytes Percent Auto 3.8 % (2-11); Neutrophils Absolute Auto 6.7 x10*3/uL (2.0-8.3); Neutrophils Percent Auto 87.1 % (45-73); Platelet Count 258 X10*3/uL (160-400); Red Blood Count 4.18 X10*6/uL (4.60-5.80); White Blood Count 7.6 X10*3/uL (4.8-10.8)
[2024-09-17 11:05] LABS: Alanine Aminotransferase 16 U/L (0-40); Albumin Level 3.9 g/dL (3.5-5.0); Alkaline Phosphatase 74 U/L (39-117); Anion Gap 17 (12-20); Aspartate Amino Transferase 15 U/L (5-37); Bilirubin Total 0.2 mg/dL (0.0-1.0); Blood Urea Nitrogen 56 mg/dL (9-16); C Reactive Protein 4.97 mg/dL (< or = 0.50); Calcium 9.5 mg/dL (8.4-10.2); Carbon Dioxide 24 mmol/L (22-29); Chloride 108 mmol/L (96-108); Estimated Glomerular Filt Rate 27; Glucose Random 160 mg/dL (60-115); Potassium 4.5 mmol/L (3.3-5.1); Sodium 144 mmol/L (135-145); Total Protein 7.6 g/dL (6.5-8.0)
[2024-09-17 11:13] LABS: Erythrocyte Sedimentation Rate 65 MM/HR (0-15)
== END 2024-09-17 07:58 | disposition home or self-care (01) ==
LOC: HO.HMGCX 07:57
PROVIDERS: PCP Nurse Practitioner Family; Visit Provider Nurse Practitioner Family
DX: M25.571 Pain in right ankle and joints of right foot (principal); M25.572 Pain in left ankle and joints of left foot; I11.9 Hypertensive heart disease without heart failure
CPT/HCPCS: 36415; 73610; 80053; 84550; 85025; 85652; 86140; 99212

== ENCOUNTER 2024-09-17 07:57 | Outpatient (AMB) | payer MEDICARE, SELFPAY ==
[2024-09-17 08:03] VITALS: BP 150/100; PULSE 78; O2SAT 93; BMI 48.2
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
== END 2024-09-17 09:59 | disposition home or self-care (01) ==
LOC: HO.HMCC 07:57
PROVIDERS: PCP Nurse Practitioner Family; Visit Provider Nurse Practitioner Family
DX: M25.579 Pain in unspecified ankle and joints of unspecified foot (principal); I10 Essential (primary) hypertension; I11.9 Hypertensive heart disease without heart failure

== ENCOUNTER 2024-10-06 11:08 | Outpatient (AMB) | payer MEDICARE, SELFPAY ==
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
[2024-10-06 11:38] VITALS: BP 141/100; PULSE 96; O2SAT 93; BMI 48.7
== END 2024-10-06 12:15 | disposition home or self-care (01) ==
PROVIDERS: PCP Nurse Practitioner Family; Visit Provider Physician Assistant
DX: M10.9 Gout, unspecified (principal)

== ENCOUNTER → 2024-10-06 11:08 | Outpatient (BNVA) | payer MEDICARE, SELFPAY | PROVIDERS: PCP Nurse Practitioner Family; Visit Provider Physician Assistant | DX: M10.9 Gout, unspecified (principal) | CPT/HCPCS: 99212 ==

== ENCOUNTER 2024-10-21 08:04 | Outpatient (AMB) | payer MEDICARE, SELFPAY ==
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
== END 2024-10-21 08:24 | disposition home or self-care (01) ==
LOC: HO.HMCC 08:04
PROVIDERS: PCP Nurse Practitioner Family; Visit Provider Nurse Practitioner Family
DX: M77.32 Calcaneal spur, left foot (principal); E66.01 Morbid (severe) obesity due to excess calories; Z68.42 Body mass index [BMI] 45.0-49.9, adult

== ENCOUNTER 2024-11-03 13:10 | Outpatient (AMB) | payer MEDICARE, SELFPAY ==
[2024-11-03 13:29] VITALS: BP 128/80; PULSE 68; O2SAT 98; BMI 48.7
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
== END 2024-11-03 14:32 | disposition home or self-care (01) ==
PROVIDERS: PCP Nurse Practitioner Family; Visit Provider Nurse Practitioner Family
DX: M10.479 Other secondary gout, unspecified ankle and foot (principal)

== ENCOUNTER → 2024-11-03 13:10 | Outpatient (BNVA) | payer MEDICARE, SELFPAY | PROVIDERS: PCP Nurse Practitioner Family; Visit Provider Nurse Practitioner Family | DX: M10.479 Other secondary gout, unspecified ankle and foot (principal) | CPT/HCPCS: 99212 ==

== ENCOUNTER 2025-02-09 10:03 | Outpatient (AMB) | payer MEDICARE, MEDICAID, SELFPAY ==
[2025-02-09 10:16] VITALS: BP 132/84; PULSE 81; O2SAT 95; BMI 50.2
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
--- OUTSIDE RECORDS SUMMARY | 2025-02-09 11:36 | XMS_ITS | Clinical Summary ---
Author Organization [facility] Address [address] [place] [address] Phone Care Team Providers Care Credit Report Checker Name Role Phone Unavailable Primary Care Provider Unavailabl e Medications ergocalciferol (VITAMIN D-2) 1.25 MG (25334 UT) capsule 1 po weekly 0 07/18/2017 Activ e carvedilol (COREG) 25 MG tablet 1 po bid 0 07/18/2017 Active aspirin EC 81 MG EC tablet 1 po daily 0 07/18/2017 Activ e furosemide (LASIX) 20 MG tablet 1 po daily 0 07/18/2017 Active diphenhydrAMINE -zinc acetate cream apply to affected are as needed 5 04/19/2018 Active pravastatin (PRAVACHOL) 40 MG tablet 1 po daily 0 07/18/2017 Active allopurinol (ZYLOPRIM) 100 MG tablet 1 po daily 0 07/18/2017 Active metFORMIN XR (GLUCOPHATE-XR) 500 MG 24 hr tablet 1 po daily 0 07/18/2017 Active cloNIDine (CATAPRES-TTS) 0.2 MG/24HR take weekly 0 04/19/2018 Activ e hydrALAZINE (APRESOLINE) 10 MG tablet 1 po 4 times a day 0 07/18/2017 Active losartan (COZAAR) 100 MG tablet 1 po daily 0 07/18/2017 Active verapamil ER (VERELAN) 240 MG 24 hr capsule 1 po daily 0 07/18/2017 Active Active Problems Problem Noted Date Diagnosed Date Type 2 diabetes mellitus with diabetic nephropat hy 07/18/2017 Chronic kidney disease, stage 3 (moderate) 07/18 Chronic kidney disease 06/20/2017 Type 2 diabetes mellitus without complication Social History Tobacco Use Types Packs/Day Years Used Date Smoking Tobacco: Never Sex and Gender Information Value Date Recorded Sex Assigned at Not on file Legal Sex Male 5:47 PM MDT Gender Identity Not on file Sexual Orientation Not on file Last Filed Vital Signs Vital Sign Reading Time Taken Comments Blood Pressure 181/97 04/19/2018 12:01 AM EDT Si tting, Left Pulse 73 04/19/2018 12:01 AM EDT Temperature - - Respiratory Rate - - Oxygen Saturation 93% 04/19/2018 12:01 AM EDT Inhaled Oxygen Concentration - - Weight 128 kg (283 lb) 04/19/2018 12:01 AM EDT Height 172.7 cm (5' 8 ) 04/19/2018 12:01 AM EDT Body Mass Index 43.03 04/19/2018 12:01 AM EDT Plan of Treatment Not on file Insurance PM [employer]ANCE PM [employer]URANCE
--- OUTSIDE RECORDS SUMMARY | 2025-02-09 11:36 | XMS_ITS | Clinical Summary ---
Author Organization [facility] Address [address] [facility] [address] [place] [address] Phone Care Team Providers Care Eeg Technologist Name Role Phone Juno Stanton NP Primary Care Provider [phone] Allergies No known active allergies Medications docusate sodium (COLACE) 100 MG capsule TAKE 1 CAPSULE BY MOUTH EVERY EVENING ..START 10 DAYS BEFORE PROCEDURE 1 Active Jennifer-dewayne 8.6 MG tablet TAKE 1 TABLET BY MOUTH AT BEDTIME NEEDED FOR CONSTIPATION 1 Active amLODIPine (NORVASC) 5 MG tablet Take 5 mg by mouth 1 (one) time each day Active cloNIDine (CATAPRES) 0.3 MG tablet Take 0.3 mg by mouth in the morning and 0.3 mg in the evening. Active pravastatin (PRAVACHOL) 40 MG tablet Take 40 mg by mouth 1 (one) time each day Active Torsemide 40 MG tabletIndicatio ns:Chronic kidney disease, stage 4 (severe) (HCC),Hypervole brooke Take 40 mg by mouth in the morning and 40 mg in the evening. 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 ?when. Not in transfer records. Hypercholesterolemia 10/23/2019 History of malignant neoplasm of prostate 2019 Body mass index 40+ - severely obese 10/23/2019 Chronic kidney disease 06/20/2017 Resolved Problems Problem Noted Date Diagnosed Date Resolved Date Type 2 diabetes mellitus wit h diabetic nephropathy 07/18/2017 10/14/2022 Type 2 diabetes mellitus without complication 06/20/20 17 10/14/2022 Social History Tobacco Use Types Packs/Day Years Used Date Smoking Tobacco: Never Smokeless Tobacco: Never Tobacco Cessation:Counseling Given: No Alcohol Use Standard Drinks/Week Comments Yes 0 (1 standard drink = 0.6 oz pur e alcohol) social Sex and Gender Information Value Date Recorded Sex Assigned at Not on file Legal Sex Male 7:32 AM EDT Gender Identity Not on file Sexual Orientation Not on file Last Filed Vital Signs Vital Sign Reading Time Taken Comments Blood Pressure 160/100 10/31/2023 1:15 PM EST Pulse 69 10/31/2023 1:15 PM EST Temperature - - Respiratory Rate - - Oxygen Saturation 94% 08/01/2023 1:54 PM EDT Inhaled Oxygen Concentration - - Weight 145 kg (320 lb) 10/31/2023 1:15 PM EST Height - - Body Mass Index - - Plan of Treatment Health Maintenance Due Date Last Done Comments Pneumococcal Vaccine: 50+ Ye ars (1 of 2 - PCV) 1970 Colorectal Cancer Screening: Annual FOBT 2000 Colorectal Cancer Screening: Colonoscopy 2000 Colorectal Cancer Screening: Sigmoidoscopy 2000 Influenza Vaccine (Season Ended) 2025 Hepatitis B Vaccine Aged Out No longe r eligible based on patient's age to complete this topic Insurance , [address] [place] [address] [employer] [facility] Adv PPO ([id number]) , [phone] [place] [address] [employer] [facility] Adv PPO ([id number]) Care Teams Eeg Technologist Relationship Specialty Start Date End Date Juno Stanton [place] [facility] [place] [address] PCP - General Nurse Practitioner 03/29/21
--- OUTSIDE RECORDS SUMMARY | 2025-02-09 11:37 | XMS_ITS | Clinical Summary ---
Author Organization [facility] Address [address] [place] [address] Phone Care Team Providers Care Long Chain Quiller Tender Name Role Phone Edilberto Galeas MD Primary Care Provider [phone] Allergies No known active allergies Medications predniSONE (DELTASONE) 20 mg tablet Take 1 tablet (20 mg total) by mouth 2 (two) times a day. 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, unspecified chronicity (Primary Dx) Discharge Disposition: Home or Self Care from Last 3 Months Surgical History Surgery Date Site/Laterality Comments COLONOSCOPY PROCEDURE: HISTORICAL COLONOSCOPY Medical History Medical History Date Comments History of prostate cancer 10/23/2019 DX:Hi story of prostate cancer Vitamin D deficiency 10/24/2019 DX:Vitamin D deficiency Hypercholesteremia 10/23/2019 DX:Hyperchole steremia Hypertension 10/23/2019 DX:Hypertension Morbid obesity with BMI of 4 5.0-49.9, adult (CMS/HCC V24, CMS/[facility] V28) 10/23/2019 DX:Morbid obesity wit h BMI of 45.0-49.9, adult ([facility]) Proteinuria 11/03/2019 DX:Proteinuria DM (diabetes mellitus), type 2 with ophthalmic complications (CMS/HCC V24, [facility] V28) 10/23/2019 DX:DM (diabetes mellitus), t ype 2 with ophthalmic complications ([facility]) DM (diabetes mellitus), type 2 with renal complications (CMS/HCC V24, [facility] V28) 11/03/2019 DX:DM (diabetes mellitus), t ype 2 with renal complications ([facility]) CKD (chronic kidney disease) stage 3, GFR 30-59 ml/min ([facility] V24, [facility] V28) 11/03/2019 DX:CKD (chronic kidney disea se) stage 3, GFR 30-59 ml/min ([facility]) Murmur 11/03/2019 DX:Murmur Claudication ([facility] V24) 11/03/2019 DX:Cl audication ([facility]); COMMENT: BLE's NPDR with macular edema ([facility] V24, [facility] V28) 11/03/2019 DX:NPDR with macular edema ( [facility]); COMMENT: Bilateral, mild, moderate number microaneurysms & dot blot hemorrhages Colon cancer screening 10/24/2019 DX:Colon cancer screening; COMMENT: colononoscopy neg per pt--10 yrs. ?when. Not in transfer records. Family History Medical History Relation Name Comments Diabetes Father Diabetes Mother Hypertension, A rthritis Relation Name Status Comments Father Mother Social History Tobacco Use Types Packs/Day Years Used Date Smoking Tobacco: Never Smokeless Tobacco: Never Alcohol Use Standard Drinks/Week Comments No 0 (1 standard drink = 0.6 oz pur e alcohol) Sex and Gender Information Value Date Recorded Sex Assigned at Male 01/04/2025 10:08 AM EDT Legal Sex Male 1:40 PM EST Gender Identity Male 01/04/2025 10:08 AM EDT Sexual Orientation Straight 01/04/2025 10 :08 AM EDT Obstetrics History Last Filed Vital Signs Vital Sign Reading Time Taken Comments Blood Pressure 190/109 01/04/2025 9:41 AM EDT Pulse 84 01/04/2025 9:41 AM EDT Temperature 37.2 ??C (99 ??F) 01/04/2025 9:41 AM EDT Respiratory Rate 20 01/04/2025 9:01 AM EDT Oxygen Saturation 91% 01/04/2025 9:41 AM EDT Inhaled Oxygen Concentration - - Weight 144 kg (317 lb) 01/04/2025 9:01 AM EDT Height 172.7 cm (5' 8 ) 01/04/2025 9:01 AM EDT Body Mass Index 48.2 01/04/2025 9:01 AM EDT Plan of Treatment Health Maintenance Due Date Last Done Comments Diabetes: Annual Foot Exam 1961 Diabetes: Annual Retina Eye Exam 1961 DTaP,Tdap,and Td Vaccines (1 - Tdap) 1970 Pneumococcal Vaccine: 50+ Years (1 of 1 - PCV) 2001 Zoster Vaccines (1 of 2) 2001 RSV Immunization Adult Patients (1 - Risk 60-74 years 1-dose series) 2011 Diabetes: Annual GFR (Glomerular Filtration Rate) 02/14/2019 02/14/2018 Cholesterol Screening (Lipid Panel) 09/12/2022 Colorectal Cancer Screening: Colonoscopy 09/12/2022 Depression Screening 09/12/2022 Falls Risk Assessment 09/12/2022 Hepatitis C Screening 09/12/2022 Medicare Annual Wellness Visit 09/12/2022 Social Influencers of Health Screening 09/12/2022 Diabetes: Blood Sugar Contro l Test (HGBA1C) 09/28/2022 Hypertension/CHF/CAD Annual BMP Blood Test 09/28/2022 02/14/2018 COVID-19 Vaccine (3 - 2023-2 5 season) 2024 03/16/2021, 02/18/2021 Diabetes: Annual Urine Albumin-Creatinine Ratio (uACR) 10/31/2024 10/31/2023 Influenza Vaccine (Season Ended) 2025 HIB Vaccines Aged Out No longer eligi ble based on patient's age to complete this topic HPV Vaccines Aged Out No longer eligi ble based on patient's age to complete this topic Hepatitis A Vaccines Aged Out No long er eligible based on patient's age to complete this topic Hepatitis B Vaccines Aged Out No long er eligible based on patient's age to complete this topic IPV Vaccines Aged Out No longer eligi ble based on patient's age to complete this topic MMR Vaccines Aged Out No longer eligi ble based on patient's age to complete this topic Meningococcal ACWY Vaccine Aged Out N o longer eligible based on patient's age to complete this topic Meningococcal B Vaccine Aged Out No l onger eligible based on patient's age to complete this topic RSV Immunization Patients Under 20 months Aged Out No longer eligible b ased on patient's age to complete this topic Varicella Vaccines Aged Out No longer eligible based on patient's age to complete this topic Insurance [employer] MEDICARE ADVANTAGE MEDICAID - [place] Care Teams Long Chain Quiller Tender Relationship Specialty Start Date End Date Edilberto Galeas MD [address] [place] [id number] PCP - General Ophthalmology 01/04/25
== END 2025-02-09 12:29 | disposition home or self-care (01) ==
LOC: HO.HMCC 10:03
PROVIDERS: PCP Nurse Practitioner Family; Visit Provider Nurse Practitioner Family
DX: Z00.01 Encounter for general adult medical examination with abnormal findings (principal); I50.9 Heart failure, unspecified; E66.01 Morbid (severe) obesity due to excess calories; Z68.43 Body mass index [BMI] 50.0-59.9, adult; N18.9 Chronic kidney disease, unspecified; R09.89 Other specified symptoms and signs involving the circulatory and respiratory systems; M79.89 Other specified soft tissue disorders

== ENCOUNTER → 2025-02-09 10:03 | Outpatient (BNVA) | payer MEDICARE, SELFPAY | PROVIDERS: PCP Nurse Practitioner Family; Visit Provider Nurse Practitioner Family | DX: Z00.01 Encounter for general adult medical examination with abnormal findings (principal); I13.0 Hypertensive heart and chronic kidney disease with heart failure and stage 1 through stage 4 chronic kidney disease, or unspecified chronic kidney disease; I50.9 Heart failure, unspecified; N18.9 Chronic kidney disease, unspecified; I77.810 Thoracic aortic ectasia; E66.01 Morbid (severe) obesity due to excess calories; Z68.43 Body mass index [BMI] 50.0-59.9, adult; R09.89 Other specified symptoms and signs involving the circulatory and respiratory systems; M79.89 Other specified soft tissue disorders | CPT/HCPCS: 93005; 96127; 99212; 99397 ==

== ENCOUNTER 2025-02-09 13:23 | Outpatient (AMB) | payer MEDICARE, SELFPAY ==
[2025-02-09 14:18] VITALS: BP 130/90; PULSE 60; BMI 50.2
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
--- OUTSIDE RECORDS SUMMARY | 2025-02-09 15:54 | XMS_ITS | Clinical Summary ---
Author Organization [facility] Address [address] [place] [address] Phone Care Team Providers Care Inside Parts Sales Name Role Phone Edilberto Galeas MD Primary Care Provider [phone] Allergies No known active allergies Medications predniSONE (DELTASONE) 20 mg tablet Take 1 tablet (20 mg total) by mouth 2 (two) times a day. 8 tablet 01/04/2025 Active Encounters Date Type Department Care Team Description 01/04/2025 9:18 AM EDT - 01/04/2025 11:10 AM EDT Emergency [facility] Emergency [address] [place] [address] Olman Marquez MD Gout of [...] BMI of 4 5.0-49.9, adult (CMS/HCC V24, CMS/[facility] V28) 10/23/2019 DX:Morbid obesity wit h BMI of 45.0-49.9, adult ([facility]) Proteinuria 11/03/2019 DX:Proteinuria DM (diabetes mellitus), type 2 with ophthalmic complications (CMS/HCC V24, [facility] V28) 10/23/2019 DX:DM (diabetes mellitus), t ype 2 with ophthalmic complications ([facility]) DM (diabetes mellitus), type 2 with renal complications (CMS/HCC V24, [facility] V28) 11/03/2019 DX:DM (diabetes mellitus), t ype 2 with renal complications ([facility]) CKD (chronic kidney disease) stage 3, GFR 30-59 ml/min ([facility] V24, [facility] V28) 11/03/2019 DX:CKD (chronic kidney disea se) stage 3, GFR 30-59 ml/min ([facility]) Murmur 11/03/2019 DX:Murmur Claudication ([facility] V24) 11/03/2019 DX:Cl audication ([facility]); COMMENT: BLE's NPDR with macular edema ([facility] V24, [facility] V28) 11/03/2019 DX:NPDR with macular edema ( [facility]); COMMENT: Bilateral, mild, moderate number microaneurysms & [...] MEDICARE ADVANTAGE [place]ICAID - [place] Care Teams Inside Parts Sales Relationship Specialty Start Date End Date Edilberto Galeas MD [address] [place] [phone] PCP - General Ophthalmology 01/04/25
--- OUTSIDE RECORDS SUMMARY | 2025-02-09 15:54 | XMS_ITS | Clinical Summary ---
Author Organization [facility] Address [address] [place] [address] Phone Care Team Providers Care Electrophonic Engineer Name Role Phone Unavailable Primary Care Provider Unavailabl e Medications ergocalciferol (VITAMIN D-2) 1.25 MG (80207 UT) capsule 1 po weekly 0 07/18/2017 [...]
--- OUTSIDE RECORDS SUMMARY | 2025-02-09 15:54 | XMS_ITS | Clinical Summary ---
Author Organization [facility] Address [address] [facility] [address] [place] [address] Phone Care Team Providers Care Director Employee Safety And Health Name Role Phone Juno Stanton NP Primary Care Provider [phone] Allergies No known active allergies Medications docusate [...] to complete this topic Insurance , [address] [place] [address] [employer] [facility] Adv PPO ([id number]) , [address] [place] [address] [employer] [facility] Adv PPO ([phone]) Care Teams Director Employee Safety And Health Relationship Specialty Start Date End Date Juno Stanton NP [facility] [place] [address] PCP - General Nurse Practitioner 03/29/21
== END 2025-02-09 14:53 | disposition home or self-care (01) ==
LOC: HO.HCS 13:23
PROVIDERS: PCP Nurse Practitioner Family; Visit Provider Nurse Practitioner Family
DX: I13.0 Hypertensive heart and chronic kidney disease with heart failure and stage 1 through stage 4 chronic kidney disease, or unspecified chronic kidney disease (principal); I50.9 Heart failure, unspecified; N18.9 Chronic kidney disease, unspecified; I77.810 Thoracic aortic ectasia
CPT/HCPCS: 99214; G2211

== ENCOUNTER 2025-02-16 10:00 | Outpatient (REF) | payer MEDICARE, MEDICAID, SELFPAY ==
--- NOTE | ~2025-02-16 | US_ITS ---
EXAMINATION: US NONINVASIVE ASSESSMENT OF THE RIGHT LOWER EXTREMITY WITH ARTERIAL DUPLEX. CLINICAL INFORMATION: Symptoms and signs involving the circulation. COMPARISON: None available. TECHNIQUE: Duplex Doppler techniques with waveform analysis and measurement of velocities in the common femoral, profunda femoris, superficial femoral, popliteal and tibial arteries were performed. The study was performed only at rest. FINDINGS: RIGHT LOWER EXTREMITY DUPLEX ULTRASOUND: Common femoral artery: 144 cm/s. Triphasic waveform. Profunda femoris artery: 46 cm/s. Triphasic waveforms. Superficial femoral artery (proximal): 114 cm/s. Triphasic waveform. Superficial femoral artery (mid): 158 cm/s. Triphasic waveforms. Superficial femoral artery (distal): 112 cm/s. Triphasic waveform. Popliteal artery: 90 cm/s Triphasic waveform. Spectral broadening. Posterior tibial artery: 108 cm/s Monophasic waveform. Anterior tibialis artery: No color Doppler flow. Peroneal artery: No coalescent Doppler flow. Dorsalis pedis artery: 52 cm/s. Monophasic waveform. US/US arterial duplex LE RT IMPRESSION: No color Doppler flow in the right pulmonary artery and anterior tibialis arteries suggesting occlusion. Severe inflow disease below the knee. Electronically signed by: Greg Up MD 02/16/2025 02:49 PM EDT
--- NOTE | ~2025-02-16 | US_ITS ---
EXAMINATION: US TRIPLEX LOWER EXTREMITY, RIGHT CLINICAL INFORMATION: Right leg edema. COMPARISON: None available. TECHNIQUE: Color-flow triplex imaging with spectral analysis and compression Doppler were performed on the right lower extremity. FINDINGS: Respiratory variation, normal compression and augmented flow are noted throughout the right lower extremity. The visualized common femoral vein, superficial femoral vein, profunda femoral vein, popliteal vein and midcalf posterior tibial venous segments show no evidence of deep venous thrombosis. The midcalf peroneal vein could not be visualized. There is no Musa's cyst. US/US venous duplex LE RT IMPRESSION: No evidence of deep venous thrombosis involving the right lower extremity. Electronically signed by: Sammy Juarez MD 02/16/2025 11:14 AM EDT
--- OUTSIDE RECORDS SUMMARY | 2025-02-16 11:16 | XMS_ITS | Clinical Summary ---
Author Organization [facility] Address [address] [place] [address] Phone Care Team Providers Care Insulation Packer Name Role Phone Unavailable Primary Care Provider Unavailabl e Medications ergocalciferol (VITAMIN D-2) 1.25 MG (54163 UT) capsule 1 po weekly 0 07/18/2017 [...]
--- OUTSIDE RECORDS SUMMARY | 2025-02-16 11:16 | XMS_ITS | Clinical Summary ---
Author Organization [facility] Address [address] [place] [address] Phone Care Team Providers Care Crude Oil Driver Name Role Phone Edilberto Galeas MD Primary Care Provider Allergies No known active allergies Medications predniSONE (DELTASONE) 20 mg tablet Take 1 tablet (20 mg total) by mouth 2 (two) times a day. 8 tablet 01/04/2025 Active Encounters Date Type Department Care Team Description 01/04/2025 9:18 AM EDT - 01/04/2025 11:10 AM EDT Emergency [facility] Emergency [address] [place] [address] Olman Marquez MD Gout of [...] type 2 with ophthalmic complications (CMS/HCC V24, [facility] V28) 10/23/2019 DX:DM (diabetes mellitus), t ype 2 with ophthalmic complications ([facility]) DM (diabetes mellitus), type 2 with renal complications (CMS/HCC V24, [facility] V28) 11/03/2019 DX:DM (diabetes mellitus), t ype 2 with renal complications ([facility]) CKD (chronic kidney disease) stage 3, GFR 30-59 ml/min ([facility] V24, [facility] V28) 11/03/2019 DX:CKD (chronic kidney disea se) stage 3, GFR 30-59 ml/min ([facility]) Murmur 11/03/2019 DX:Murmur Claudication ([facility] V24) 11/03/2019 DX:Cl audication ([facility]); COMMENT: BLE's NPDR with macular edema ([facility] V24, [facility] V28) 11/03/2019 DX:NPDR with macular edema ( [...] MEDICARE ADVANTAGE [place]ID - [place] Care Teams Crude Oil Driver Relationship Specialty Start Date End Date Edilberto Galeas MD [address] [place] [phone] PCP - General Ophthalmology 01/04/25
--- OUTSIDE RECORDS SUMMARY | 2025-02-16 11:16 | XMS_ITS | Clinical Summary ---
Author Organization [facility] Address [address] [facility] [address] [place] [address] Phone Care Team Providers Care Chute Puller Name Role Phone Juno Stanton NP Primary Care Provider [phone] Allergies No known active allergies Medications docusate [...] to complete this topic Insurance , [address] [place] [address] A[employer] [facility] Adv PPO ([phone]) , [address] [place] [address] [employer] [facility] Adv PPO ([phone]) Care Teams Chute Puller Relationship Specialty Start Date End Date Juno Stanton NP [place] [address] PCP - General Nurse Practitioner 03/29/21
== END 2025-02-16 10:01 | disposition home or self-care (01) ==
LOC: HO.US 10:00
PROVIDERS: PCP Nurse Practitioner Family; Visit Provider Nurse Practitioner Family
DX: M79.604 Pain in right leg (principal); R09.89 Other specified symptoms and signs involving the circulatory and respiratory systems; M79.89 Other specified soft tissue disorders
CPT/HCPCS: 93926; 93971

== ENCOUNTER → 2025-02-16 10:17 | Outpatient (BNV) | payer MEDICARE, MEDICAID, SELFPAY | PROVIDERS: PCP Nurse Practitioner Family; Visit Provider Radiology Diagnostic Radiology | DX: R22.41 Localized swelling, mass and lump, right lower limb (principal); I70.201 Unspecified atherosclerosis of native arteries of extremities, right leg | CPT/HCPCS: 93926; 93971 ==

== ENCOUNTER → 2025-08-03 08:50 | Outpatient (REF) | payer MEDICARE, SELFPAY ==
--- OUTSIDE RECORDS SUMMARY | 2025-08-03 09:55 | XMS_ITS | Clinical Summary ---
Author Organization [facility] Address [address] [place] [address] Phone Care Team Providers Care Master Black Belt Name Role Phone Juno Stanton NP Primary Care Provider Allergies No known active allergies Medications oxyCODONE (OXY-IR) 5 mg immediate release capsuleIndicati ons:Acute gout due to renal impairment involving left ankle Take 1 capsule (5 mg total) by mouth every 6 (six) hours if needed for severe pain. Max Daily Amount: 20 mg 15 capsule 02/25/2025 Active Surgical History Surgery Date Site/Laterality Comments COLONOSCOPY PROCEDURE: HISTORICAL COLONOSCOPY Medical History Medical History Date Comments History of prostate cancer 10/23/2019 DX:Hi story of prostate cancer Vitamin D deficiency 10/24/2019 DX:Vitamin D deficiency Hypercholesteremia 10/23/2019 DX:Hyperchole steremia Hypertension 10/23/2019 DX:Hypertension Morbid obesity with BMI of 4 5.0-49.9, adult ([facility] V24, [facility] V28) 10/23/2019 DX:Morbid obesity wit h BMI of 45.0-49.9, adult ([facility]) Proteinuria 11/03/2019 DX:Proteinuria DM (diabetes mellitus), type 2 with ophthalmic complications ([facility] V24, [facility] V28) 10/23/2019 DX:DM (diabetes mellitus), t ype 2 with ophthalmic complications ([facility]) DM (diabetes mellitus), type 2 with renal complications ([facility] V24, [facility] V28) 11/03/2019 DX:DM (diabetes mellitus), t ype 2 with renal complications (HCC) CKD (chronic kidney disease) stage 3, GFR 30-59 ml/min ([facility] V24, [facility] V28) 11/03/2019 DX:CKD (chronic kidney disea se) stage 3, GFR 30-59 ml/min ([facility]) Murmur 11/03/2019 DX:Murmur Claudication ([facility] V24) 11/03/2019 DX:Cl audication ([facility]); COMMENT: BLE's NPDR with macular edema ([facility] V24, [facility] V28) 11/03/2019 DX:NPDR with macular edema ( [facility]); COMMENT: Bilateral, mild, moderate number microaneurysms & [...] Sign Reading Time Taken Comments Blood Pressure 154/104 02/25/2025 4:10 AM EDT Pulse 77 02/25/2025 4:10 AM EDT Temperature 37.1 C (98.8 F) 02/25/2025 4:10 AM EDT Respiratory Rate 20 02/25/2025 4:10 AM EDT Oxygen Saturation 95% 02/25/2025 4:10 AM EDT Inhaled Oxygen Concentration - - Weight 144 kg (318 lb) 02/25/2025 3:58 AM EDT Height 175.3 cm (5' 9 ) 02/25/2025 3:58 AM EDT Body Mass Index 46.96 02/25/2025 3:58 AM EDT Plan of Treatment Health Maintenance Due Date Last Done Comments Colorectal Cancer Screening: Colonoscopy 1950 Diabetes: Annual Foot Exam 1961 Diabetes: Annual Retina Eye Exam 1961 DTaP,Tdap,and Td Vaccines (1 - Tdap) 1970 Pneumococcal Vaccine: 50+ Years (1 of 2 - PCV) 1970 RSV Immunization Adult Patients (1 - Risk 50-74 years 1-dose series) 2001 Zoster Vaccines (1 of 2) 2001 Diabetes: Annual GFR (Glomerular Filtration Rate) 02/14/2019 02/14/2018 Cholesterol Screening (Lipid Panel) 09/12/2022 Falls Risk Assessment 09/12/2022 Hepatitis C Screening 09/12/2022 Medicare Annual Wellness Visit 09/12/2022 Social Influencers of Health Screening 09/12/2022 Diabetes: Blood Sugar Contro l Test (HGBA1C) 09/28/2022 Hypertension/CHF/CAD Annual BMP Blood Test 09/28/2022 02/14/2018 Depression Screening 10/15/2024 Diabetes: Annual Urine Albumin-Creatinine Ratio (uACR) 10/31/2024 10/31/2023 COVID-19 Vaccine (3 - 2024-2 6 season) 2025 03/16/2021, 02/18/2021 Influenza Vaccine (#1) 2025 HIB Vaccines Aged Out No longer [...] MEDICARE ADVANTAGE [place]ICA[place] - [place] Care Teams Master Black Belt Relationship Specialty Start Date End Date Juno Stanton NP PCP - General Family Medicine 02/25/25
--- OUTSIDE RECORDS SUMMARY | 2025-08-03 09:55 | XMS_ITS | Clinical Summary ---
Author Organization [facility] Address [address] [place] [address] Phone Care Team Providers Care Pulp Operator Name Role Phone Unavailable Primary Care Provider Unavailabl e Medications ergocalciferol (VITAMIN D-2) 1.25 MG (96296 UT) capsule 1 po weekly 0 07/18/2017 [...]
--- OUTSIDE RECORDS SUMMARY | 2025-08-03 09:55 | XMS_ITS | Clinical Summary ---
Author Organization [facility] Address [address] [facility] [address] [place] [address] Phone Care Team Providers Care Concession Cashier Name Role Phone Juno Stanton NP Primary Care Provider [phone] Allergies No known active allergies Medications docusate [...] Colorectal Cancer Screening: Sigmoidoscopy 2000 Influenza Vaccine (#1) 2025 Hepatitis B Vaccine Aged Out No longe r eligible based on patient's age to complete this topic Insurance , [address] [place] [address] Aetna [facility] Adv PPO ([id number]) , [address] [place] [address] [employer]na [facility] Adv PPO ([id number]) Care Teams Concession Cashier Relationship Specialty Start Date End Date Juno Stanton NP [facility] [place] [address] PCP - General Nurse Practitioner 03/29/21
--- OUTSIDE RECORDS SUMMARY | 2025-08-03 09:55 | XMS_ITS | Clinical Summary ---
Author Organization [facility] Address [address] [facility] [address] [place] [address] Phone Care Team Providers Care Household Appliances Salesperson Name Role Phone Unavailable Primary Care Provider Unavailabl e Social History Tobacco Use Types Packs/Day Years Used Date Smoking Tobacco: Never Assessed Education Answer Date Recorded Are you interested in more education? Not on caty e 02/10/2023 Are you concerned about learning? Not on file 02/10/2023 No 02/10/2023 No 02/10/2023 Digital Access Answer Date Recorded No 03/13/2023 No 03/13/2023 Reliable internet access at home? Not on file 03/13/2023 Device with a working camera? Not on file Sex and Gender Information Value Date Recorded Sex Assigned at Not on file Legal Sex Male 1:58 PM EDT Gender Identity Not on file Sexual Orientation Not on file Plan of Treatment Not on file Medical Devices Not on file Additional Source Comments The information contained in this document represents components of the legal health record. It is not the complete legal health record.[facility]
[2025-08-03 10:29] LABS: MANUAL DIFF FLAG NO
[2025-08-03 10:41] LABS: Hematocrit 37.3 % (42.0-52.0); Hemoglobin 11.4 g/dl (14.0-18.0); Imm Gran Abs Auto 0.01 X10*3/uL (0.00-0.03); Imm Gran Pct Auto 0.2 % (0.0-0.4); Lymphocytes Absolute Auto 1.0 X10*3/uL (1.2-4.9); Mean Corpuscular HGB Conc 30.6 g/dl (31.0-36.0); Mean Corpuscular Hemoglobin 28.7 pg (27.0-33.0); Mean Corpuscular Volume 94.0 fL (80.0-98.0); NRBC Abs Auto 0.000 X10*3/uL (0.0-0.012); NRBC Pct Auto 0.0 /100WBC (0.0-0.2); Platelet Count 233 X10*3/uL (160-400); Red Blood Count 3.97 X10*6/uL (4.60-5.80); White Blood Count 5.1 X10*3/uL (4.8-10.8)
[2025-08-03 11:02] LABS: Alanine Aminotransferase 16 U/L (0-40); Albumin Level 4.0 g/dL (3.5-5.0); Alkaline Phosphatase 79 U/L (39-117); Anion Gap 14 (12-20); Aspartate Amino Transferase 20 U/L (5-37); Blood Urea Nitrogen 28 mg/dL (9-16); Calcium 9.1 mg/dL (8.4-10.2); Carbon Dioxide 23 mmol/L (22-29); Chloride 111 mmol/L (96-108); Cholesterol 174 mg/dL (<200); Estimated Glomerular Filt Rate 32; HDL Cholesterol 39 mg/dL (>40); Potassium 5.0 mmol/L (3.3-5.1); Sodium 143 mmol/L (135-145); Total Protein 6.9 g/dL (6.5-8.0); Triglycerides 84 mg/dL (<150)
--- NOTE | 2025-08-03 11:08 | CA_ITS ---
Transthoracic Echocardiogram Patient (Last, First, Middle): Rashid Moss, Gender: Marci Date of : 1950 Age: 74 Procedure Date: 08/03/2025 Procedure Type: Transthoracic Echocardiogram Location: OP Height: 172.72 cm Weight: 149.69 kg BSA: 2.53 m2 Heart Rate: 71 bpm BP: 148 / 82 mmHg Day Camp Counselor: SB Referring MD: Angelique Rogers RN [facility] Child Care Lead Teacher: Sukhi Edouard MD Symptoms: I77.810 - Thoracic aortic ectasia Study Quality: Adequate w contrast/supine/HOB up for study ECG Rhythm: Sinus Conclusions: - 1. Hyperdynamic LV ejection fraction greater than 70% with severe left ventricular hypertrophy with grade 1 diastolic dysfunction 2. Calcific aortic and mitral valve changes noted with normal cardiac valvular Dopplers 3. Mildly dilated ascending aorta at 4.4 cm 4. No gross pericardial effusion Findings Procedure Information Contrast agent, definity, is being given per protocol without apparent complications. The quality of the study was technically difficult. The study quality is limited by patients body habitus. Left Ventricle Normal left ventricular cavity size. There is severely increased left ventricular wall thickness. The left ventricular systolic function is hyperdynamic. The visually estimated ejection fraction is >70%. Spectral Doppler is indicative of an impaired relaxation filling pattern. E/E prime ratio is <8, consistent with normal filling pressures. Evidence suggests grade I (mild) diastolic dysfunction. Right Ventricle Normal right ventricular cavity size and systolic function. Atria The left atrium is normal in size. Interatrial shunt cannot be excluded. The right atrium is normal in size. Aortic Valve There is mild calcification of the aortic valve. There is no aortic valve stenosis. The peak aortic velocity is 1.97 m/s. The mean gradient is 8 mmHg. The aortic valve area is 2.57 cm2. There is no aortic valve regurgitation. Mitral Valve There is mild anterior and posterior mitral leaflet thickening. There is mild mitral annular calcification. There is trace mitral valve regurgitation. There is no mitral valve stenosis. Tricuspid Valve Likely normal tricuspid valve structure and function. Tricuspid regurgitation envelope is inadequate for calculation of right ventricular systolic pressure. Normal right atrial pressure. Great Vessels The pulmonary artery was not well visualized. There is mild dilatation of the ascending aorta measuring 4.40 cm. Small plaque is seen in the sino tubular ridge. Venous The inferior vena cava is normal in size and collapses greater than 50% with inspiration. Pericardium/Pleural There is no evidence of pericardial effusion. Prior Study Comparison No significant change compared to prior study dated: 06/24/2024. Measurements 2D Linear Measurements IVSd: 1.64 0.6-0.9/0.6-1.0 cm LVIDd: 5.08 3.9-5.3/4.2-5.9 cm LVIDd Index: 2.01 2.4-3.2/2.2-3.1 cm/m2 LVIDs: 3.75 2.0-3.6 cm LVPWd: 1.62 0.7-1.1 cm LA Diam: 4.40 2.7-3.8/3.0-4.0 cm LAIDs Index: 1.74 1.5-2.3 cm/m2 LV Mass: 412.27 67-162/88-224 g LV Mass Index: 162.95 43-95/49-115 g/m2 LVOT Diam: 2.20 3.0+(-)1.3 cm 2D Systolic Function EF 4C: 75.00 >55% EF 2C: 70.20 >55% EF BiP: 73.00 >55% Mitral Valve MV Pk E: 0.85 MV PK A: 1.00 MV Decel Time: 246.00 E/A: 0.90 E'Lateral: 6.31 E'Medial: 5.66 E/E' Med: 15.10 E/E' Lat: 13.50 PHT: 72.00 MVA PHT: 3.06 Decel Parker: 3.47 Aortic Valve AoV Pk Jasper: 1.97 AoV Mn Jasper: 1.35 AoV VTI: 0.37 AoV Pk Grad: 16.00 Aov Mn Grad: 8.00 KIMMY Cont.VTI: 2.57 LVOT LVOT Pk Jasper: 1.32 LVOT Mn Jasper: 0.90 LVOT VTI: 0.25 LVOT Pk Grad: 7.00 LVOT Mn Grad: 4.00 LVOT Diam: 2.20 LVOT Area: 3.80 Diastolic Function MV Pk E: 0.85 MV Pk A: 1.00 E/A: 0.90 E'Medial: 5.66 E/E' Med: 15.10 E' Laterial: 6.31 E/E' Lat: 13.50 Right Ventricle TAPSE (mm): 25.10 TVS' Jasper: 18.50 Tricuspid Valve RA Press: 3.00 Great Vessels Aorta Sinus of Valsalva: 3.90 2.0-3.5 cm Ao Asc: 4.40 2.1-3.4 cm Ao Arch: 3.70 Pulmonary Valve PV Pk Jasper: 1.14 Peak PV Grad: 5.00 Updated in Other Vendor System with Status of Final Sukhi Edouard MD electronically signed on 08/03/2025 2:36:43 PM with status of Final
== END ==
LOC: HO.CARD 08:50
PROVIDERS: PCP Nurse Practitioner Family; Visit Provider Nurse Practitioner Family
DX: Z00.01 Encounter for general adult medical examination with abnormal findings (principal); R09.89 Other specified symptoms and signs involving the circulatory and respiratory systems; M79.89 Other specified soft tissue disorders; I77.810 Thoracic aortic ectasia; I50.9 Heart failure, unspecified; N18.9 Chronic kidney disease, unspecified
CPT/HCPCS: 36415; 80053; 80061; 84443; 85025; 93306; Q9957

== ENCOUNTER → 2025-08-03 11:08 | Outpatient (BNV) | payer MEDICARE, SELFPAY | PROVIDERS: PCP Nurse Practitioner Family; Visit Provider Internal Medicine Cardiovascular Disease | DX: I51.7 Cardiomegaly (principal); I35.8 Other nonrheumatic aortic valve disorders; I77.810 Thoracic aortic ectasia; I51.89 Other ill-defined heart diseases | CPT/HCPCS: 93306 ==

== ENCOUNTER 2025-08-11 12:35 | Outpatient (AMB) | payer MEDICARE, SELFPAY ==
[2025-08-11 12:53] VITALS: BP 168/90; PULSE 55; BMI 49.1
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
--- OUTSIDE RECORDS SUMMARY | 2025-08-11 15:51 | XMS_ITS | Clinical Summary ---
Author Organization [facility] Address [address] [place] [address] Phone Care Team Providers Care Sanitary Landfill Supervisor Name Role Phone Juno Stanton NP Primary Care Provider [phone] Allergies No known active allergies Medications oxyCODONE [...] obesity with BMI of 4 5.0-49.9, adult ([facility] V24, [facility] V28) 10/23/2019 DX:Morbid obesity wit h BMI of 45.0-49.9, adult ([facility]) Proteinuria 11/03/2019 DX:Proteinuria DM (diabetes mellitus), type 2 with ophthalmic complications ([facility] V24, [facility] V28) 10/23/2019 DX:DM (diabetes mellitus), t ype 2 with ophthalmic complications ([facility]) DM (diabetes mellitus), type 2 with renal complications ([facility] V24, [facility] V28) 11/03/2019 DX:DM (diabetes mellitus), t ype 2 with renal complications (HCC) CKD (chronic kidney disease) stage 3, GFR 30-59 ml/min ([facility] V24, [facility] V28) 11/03/2019 DX:CKD (chronic kidney disea se) stage 3, GFR 30-59 ml/min ([facility]) Murmur 11/03/2019 DX:Murmur Claudication ([facility] V24) 11/03/2019 DX:Cl audication ([facility]); COMMENT: BLE's NPDR with macular edema ([facility] V24, [facility] V28) 11/03/2019 DX:NPDR with macular edema ( [facility]); COMMENT: Bilateral, mild, moderate number microaneurysms & [...] MEDICARE ADVANT[place] - [place] Care Teams Sanitary Landfill Supervisor Relationship Specialty Start Date End Date Juno Stanton NP PCP - General Family Medicine 02/25/25
--- OUTSIDE RECORDS SUMMARY | 2025-08-11 15:51 | XMS_ITS | Patient Health Record ---
Author Organization [facility] Address [address] [place] [address] Care Team Providers Care Loans Officer Name Role Phone Juno Sebastian Primary Care Provider Unav Esha Mauro Unavailable [phone] Allergies No Known Allergies Reason For Referral No Information Medications Medication SIG (Take, Route, Frequency, Duration) Notes Start Date End Date Status Torsemide 20 MG 1 tablet Orally Once a day Active Carvedilol 25 MG 1 tablet with food O rally Twice a day Active Allopurinol 100 MG 1 tablet Orally Once a day Active amLODIPine Besylate 5 MG 1 tablet Orally Once a day Active Pravastatin Sodium 40 MG 1 tablet Orally Once a day Active Losartan Potassium 50 MG 1 tablet Orally Once a day Active Social History Tobacco Use: Social History Observation Description Date Details (start date - stop date) Never Smoker NA - NA Tobacco use other than smoking: Question Answer Notes Are you an other tobacco user? No Tobacco Control (Standard) Question Answer Notes Tobacco use: Nonsmoker Additional Findings: Tobacco non-user Current no nsmoker AUDIT-C (Standard) Question Answer Notes Did you have a drink containing alcohol in the p ast year? No Points 0 Interpretation Negative Problems Problem Type SNOMED Code ICD Code Onset Dates Problem Status W/U Status Risk Notes Problem Peripheral venous insufficiency ([id number]) Venous insufficiency (I87.2) Active confirmed Vital Signs Blood pressure diastolic 70 mm Hg 02/20/2025 Height 5ft 8in in 02/20/2025 Blood pressure systolic 129 mm Hg 02/20/2025 Weight 323 lbs 02/20/2025 BMI 49.11 kg/m2 02/20/2025 Procedures Procedure Date Ordered Date Performed Result Body Sit e 87002-[id number] NAIL, 6 OR MORE 02/20/2025 N/A Encounters Encounter Location Date Provider Diagnosis [address] [address] 02/20/2025 Esha Deleon Edema, lower extremity R60.0 ; Onychomycosis B35.1 ; Pain in right toe(s) M79.674 ; Pain in left toe(s) M79.675 and Venous insufficiency I87.[address] [address] 02/20/2025 Esha Deleon [address] [address] 02/20/2025 Esha Deleon Assessments Encounter Date Diagnosis (ICD Code) Assessment Notes Treatment Notes Treatment Clinical Notes Section Notes 02/20/2025 Onychomycosis (ICD-10 - B35.1) 02/20/2025 Edema, lower extremity (ICD-10 - R60.0) 02/20/2025 Pain in right toe(s) (ICD-10 - M79.674) 02/20/2025 Pain in left toe(s) (ICD-10 - M79.675) 02/20/2025 Venous insufficiency (ICD-10 - I87.2) Plan Of Treatment Pending Test Test Name Order Date [id number] NAIL, 6 OR MORE 02/20/2025 Insurance Providers Payer Name Payer Address Payer Phone Subscriber Number Group Number Insured Name Patient Relationship to Insured Coverage Start Date Coverage End Date [employer] Medicare Open [address] [place] [address] [id number] Rashid Moss Self - patient is the insured Medical (General) History Medical History History ICD Code Back,Hip,and Knee pain CAD (Cholesterol) Gout Headaches/Migraines Heart disease Kidney disease Sleep apnea Hypertensive heart disease asthma High Blood Pressure Surgical History Surgery Date(Month/Year) colonoscopy
--- OUTSIDE RECORDS SUMMARY | 2025-08-11 15:51 | XMS_ITS | Clinical Summary ---
Author Organization [facility] Address [address] [facility] [address] [place] [address] Phone Care Team Providers Care Joinery Patternmaker Name Role Phone Juno Stantno NP Primary Care Provider [phone] Allergies No known active allergies Medications docusate [...] to complete this topic Insurance , [address] [place] [address] [employer] [facility] Adv PPO ([id number]) , [address] [place] [address] [employer] [facility] Adv PPO ([id number]) Care Teams Joinery Patternmaker Relationship Specialty Start Date End Date Juno Stanton NP [facility] [place] [address] PCP - General Nurse Practitioner 03/29/21
--- OUTSIDE RECORDS SUMMARY | 2025-08-11 15:51 | XMS_ITS | Clinical Summary ---
Author Organization [facility] Address [address] [facility] [address] [place] [id number] Phone Care Team Providers Care Bankruptcy Processor Name Role Phone Unavailable Primary Care Provider [...] It is not the complete legal health record.[facility]
--- OUTSIDE RECORDS SUMMARY | 2025-08-11 15:51 | XMS_ITS | Clinical Summary ---
Author Organization [facility] Address [address] [place] [address] Phone Care Team Providers Care Social Media Job Titles Name Role Phone Unavailable Primary Care Provider Unavailabl e Medications ergocalciferol (VITAMIN D-2) 1.25 MG (56246 UT) capsule 1 po weekly 0 07/18/2017 [...]
== END 2025-08-11 13:21 | disposition home or self-care (01) ==
LOC: HO.HCS 12:36
PROVIDERS: PCP Nurse Practitioner Family; Visit Provider Nurse Practitioner Family
DX: I13.2 Hypertensive heart and chronic kidney disease with heart failure and with stage 5 chronic kidney disease, or end stage renal disease (principal); I50.9 Heart failure, unspecified; N18.9 Chronic kidney disease, unspecified; I77.810 Thoracic aortic ectasia
CPT/HCPCS: 99214; G2211

== ENCOUNTER → 2025-08-11 12:35 | Outpatient (BNVA) | payer MEDICARE, SELFPAY | PROVIDERS: PCP Nurse Practitioner Family; Visit Provider Nurse Practitioner Family | DX: I13.0 Hypertensive heart and chronic kidney disease with heart failure and stage 1 through stage 4 chronic kidney disease, or unspecified chronic kidney disease (principal); N18.9 Chronic kidney disease, unspecified; I50.9 Heart failure, unspecified; I77.810 Thoracic aortic ectasia | CPT/HCPCS: 99212 ==